=== PATIENT | male | born 1955 | race Two or more races ===

== ENCOUNTER → 2018-11-06 | Day surgery (SDC) | payer BC ==
--- NOTE | 2018-11-05 15:30 | Diagnostic Imaging Report ---
Exam: Abdominal film Clinical History: Preop for stent removal Comparison: None. DISCUSSION: Left internal ureteral stent is noted, with the proximal locking loop projecting over the expected region of the left renal pelvis. The distal locking loop projects over the region of the urinary bladder just to the right of midline. There is significant calcific encrustation along the proximal one third of the ureteral portion of the stent. A cluster of calcifications project over the lower pole of the left renal shadow to a maximum diameter of 1 cm. No suspicious calcifications project over the right renal shadow or urinary bladder. Pelvic phleboliths. Bowel gas pattern is nonobstructive. Regional skeletal structures are intact. IMPRESSION: Left internal ureteral stent with partial encrustation along the proximal ureteral portion as above. Clustered left lower pole renal calculi. Signed by: Dr. Cl Hope M.D. on 11/05/2018 3:27 PM
[~2018-11-06] MED LIST: AMLODIPINE BESY10 MG PO; BELLADONNA/OPIUM 30 MG SUPP RC ONE; FENTANYL CITRATE/PF 100MCG/2 ML INJ ONE; IOPAMIDOL 610MG/1ML 300 MG/ML VIAL IV ONE; LIDOCAINE HCL 2% LOCAL INJ 5 ML SDV VIAL INJ ONE; LOSARTAN POTAS100 MG PO; MEPERIDINE HCL INJ 25 MG/ML VIAL ONE; PIPER-TAZ 3.375 GM 50 ML ONE; PROPOFOL IV EMULSION 10 MG/ML 20 ML VIAL ONE; SEVOFLURANE INHAL SOLN 250 ML PEN BTL ONE; ULTRAM 50MG50 MG PO
--- OUTSIDE RECORDS SUMMARY | 2018-11-06 11:08 | XMS REPORT ---
Author Author [facility] Address Unknown Phone Unavailable Care Team Providers Care Coastal/Harbor Defense Officer Name Role Phone NATHALIA WALLACE Unavailable Unavailable Payers Payer Name Policy Type Policy Number Effective Date Expiration Date Problems This patient has no known problems. Allergies, Adverse Reactions, Alerts Allergy Name Allergy Type Status Severity Reaction(s) Onset Date Inactive Date Treating Clinician Comments No Known Allergies DA Active U 2018-09-25 00:00:00 Medications This patient has no known medications. Results Test Description Test Time Test Comments Text Results Atomic Results Result Comments [address] (KUB) 2018-11-05 15:24:00 [place] [address] Patient Name: CLINTON CASTANEDA MR #: [id number] : 1955 Age/Sex: 63/M Req #: [id number] Adm Physician: Ordered by: NATHALIA WALLACE MD Report #: [id number] Location: OR Room/Bed: Procedure: [id number] DX/ABDOMEN-1VIEW (KUB) Exam Date: Exam Time: REPORT STATUS: Signed Exam: Abdominal film Clinical History: Preop for stent xavier jeison Comparison: None. DISCUSSION: Left internal ureteral stent is noted, with the proximal locking loop projecting over the expected region of the left renal pelvis. The distal locking loop projects over the region of the urinary bladder just to the right of midline. There is significant calcific encrustation along the proximal one third of the ureteral portion of the stent. A cluster of calcifications project over the lower pole of the left renal shadow to a maximum diameter of 1 cm. No suspicious calcifications project over the right renal shadow or urinary bladder. Pelvic phleboliths. Bowel gas pattern is nonobstructive. Regional skeletal structures are intact. IMPRESSION: Left internal ureteral stent with partial encrustation along the proximal ureteral portion as above. Clustered left lower pole renal calculi. Signed by: Dr. Marisol Harris M.D. on 11/05/2018 3:27 PM Dictated By: MARISOL HARRIS MD [id number] Transcribed By: ELISEO on 11/05/18 1527 COPY TO: NATHALIA WALLACE MD
--- OUTSIDE RECORDS SUMMARY | 2018-11-06 11:08 | XMS REPORT | Clinical Summary ---
Author Author [facility] Address Unknown Phone Unavailable Care Team Providers Care Monumental Stonemason Name Role Phone Shilo Crockett MD PCP Allergies No Known Allergies Medications End Date Status Medication Sig Dispensed Refills Start Date Active amLODIPine (NORVASC) 10 Take 10 mg by 0 mg tablet mouth daily. 10/23/2018 Discontinued ertapenem (INVanz) 1 gram Inject 1 g 0 recon soln into the shoulder, thigh, or buttocks daily. Active Problems Problem Noted Date Kidney stones 10/07/2018 Encounters Care Team Description Date Type Specialty Senthil Engel MD 10/30/2018 Anesthesia General Surgery Event Cameron Avelar MD EXTRACORPOREAL SHOCKWAVE LITHOTRIPSY (ESWL) 10/30/2018 Surgery General Surgery Cameron Avelar MD 10/30/2018 Hospital General Surgery Encounter Cameron Avelar MD 10/23/2018 Hospital Radiology Encounter Cameron Avelar MD Preop testing (Primary Dx) 10/23/2018 Pre-Admit Pre-Admission Testing Testing Appointment [facility] 10/07/2018 Anesthesia General Surgery Event Cameron Avelar MD EXTRACORPOREAL SHOCKWAVE LITHOTRIPSY (ESWL) 10/07/2018 Surgery General Surgery Cameron Avelar MD 10/07/2018 Hospital General Surgery Encounter Cameron Avelar MD 10/06/2018 Hospital Radiology Encounter Cameron Avelar MD Preop testing (Primary Dx) 10/06/2018 Pre-Admit Pre-Admission Testing Testing Appointment after 11/05/2017 Family History Medical History Relation Name Comments Diabetes Father Heart disease Father Relation Name Status Comments Father Mother Alive Social History Date Tobacco Use Types Packs/Day Years Used Never Smoker Smokeless Tobacco: Never Used Alcohol Use Drinks/Week oz/Week Comments No Alcohol Habits Answer Date Recorded How often do you have a drink containing alcohol? Never 10/06/2018 How many drinks containing alcohol do you have on Not asked a typical day when you are drinking? How often do you have six or more drinks on one Not asked occasion? Sex Assigned at Date Recorded Not on file Industry Job Start Date Occupation Not on file Not on file Not on file Travel End Travel History Travel Start No recent travel history available. Last Filed Vital Signs Time Taken Vital Sign Reading 10/30/2018 9:26 AM MUSIC LIBRARIAN Blood Pressure 132/89 10/30/2018 9:26 AM MUSIC LIBRARIAN Pulse 71 10/30/2018 8:00 AM MUSIC LIBRARIAN Temperature 36.6 C (97.8 F) 10/30/2018 9:26 AM MUSIC LIBRARIAN Respiratory Rate 16 10/30/2018 9:26 AM MUSIC LIBRARIAN Oxygen Saturation 96% - Inhaled Oxygen - Concentration 10/30/2018 6:19 AM MUSIC LIBRARIAN Weight 84 kg (185 lb 2 oz) 10/30/2018 6:19 AM MUSIC LIBRARIAN Height 177.8 cm (5' 10") 10/30/2018 6:19 AM MUSIC LIBRARIAN Body Mass Index 26.56 Plan of Treatment Health Maintenance Due Date Last Done Comments COLON CANCER SCREENING 2004 SHINGLES VACCINES (1 of 2004 2) INFLUENZA VACCINE 06/17/2018 Procedures Comments Procedure Name Priority Date/Time Associated Diagnosis MO AN ELECTIVE Routine 10/30/2018 SUPRAGLOTTIC AIRWAY 7:38 AM MUSIC LIBRARIAN Procedure Note - Senthil Engel MD - 10/30/2018 7:38 AM MUSIC LIBRARIAN ANESTHESIA INTUBATION Date/Time: 10/30/2018 7:20 AM Performed by: Senthil Engel MD Authorized by: Senthil Engel MD Location: OR Urgency: Elective Difficult Airway: No Anesthesio logist: Senthil Engel MD Performed by: anesthesio logist Preoxygena dariel with 100% O2: Yes C-spine Precaution s Maintained Throughout : Yes Final Airway Type: Supraglott ic airway Final LMA: Classic LMA Size: 5 Number of Attempts at Approach: 1 Medication s Administer ed Propofol (DIPRIVAN) BOLUS, 150 mg EXTRACORPOREAL SHOCKWAVE 10/30/2018 LEFT KIDNEY STONE LITHOTRIPSY (ESWL) 7:15 AM MUSIC LIBRARIAN N20.0 XR KUB KIDNEY URETER Routine 10/23/2018 Preop testing BLADDER 3:05 PM MUSIC LIBRARIAN ECG 12-LEAD Routine 10/23/2018 Preop testing 2:38 PM MUSIC LIBRARIAN MO AN ELECTIVE Routine 10/07/2018 SUPRAGLOTTIC AIRWAY 7:39 AM MUSIC LIBRARIAN Procedure Note - [facility] - 10/07/2018 7:39 AM MUSIC LIBRARIAN ANESTHESIA INTUBATION Performed by: [facility] Authorized by: Gab Johnson MD Location: OR Urgency: Elective Difficult Airway: No Anesthesio logist: Gab Johnson MD Resident/C RNA/AA: [facility] Performed by: resident/C RNA/AA Preoxygena dariel with 100% O2: Yes C-spine Precaution s Maintained Throughout : Yes Mask Ventilatio n: Not attempted Final Airway Type: Supraglott ic airway Final LMA: Unique LMA Size: 5 Number of Attempts at Approach: 1 CYSTOSCOPY, WITH 10/07/2018 N20.0 KIDNEY STONE TRANSURETHRAL INCISION OF 7:00 AM MUSIC LIBRARIAN PROSTATE Special Needs NEXTMED- OFFICE WILL SCHEDULE CYSTOSCOPY, WITH 10/07/2018 N20.0 KIDNEY STONE TRANSURETHRAL INCISION OF 7:00 AM MUSIC LIBRARIAN BLADDER NECK Special Needs NEXTMED- OFFICE WILL SCHEDULE EXTRACORPOREAL SHOCKWAVE 10/07/2018 N20.0 KIDNEY STONE LITHOTRIPSY (ESWL) 7:00 AM MUSIC LIBRARIAN Special Needs NEXTMED- OFFICE WILL SCHEDULE XR KUB KIDNEY URETER Routine 10/06/2018 Preop testing BLADDER 4:12 PM MUSIC LIBRARIAN ECG 12-LEAD Routine 10/06/2018 Preop testing 3:38 PM MUSIC LIBRARIAN URIC ACID LEVEL Routine 10/06/2018 3:31 PM MUSIC LIBRARIAN ESTIMATED GFR Routine 10/06/2018 3:31 PM MUSIC LIBRARIAN BASIC METABOLIC PANEL Routine 10/06/2018 Preop testing 3:31 PM MUSIC LIBRARIAN PARATHYROID HORMONE Routine 10/06/2018 Preop testing 3:31 PM MUSIC LIBRARIAN HC COMPLETE BLD COUNT Routine 10/06/2018 Preop testing W/AUTO DIFF 3:31 PM MUSIC LIBRARIAN after 11/05/2017 Results * XR Kub Kidney Ureter Bladder (10/23/2018 3:05 PM MUSIC LIBRARIAN) Only the most recent of 2 results within the time period is included. Narrative Performed At EXAMINATION:XR KUB KIDNEY URETER BLADDER [facility] CLINICAL HISTORY:Z01.818 Encounter for other preprocedural examination, preop COMPARISON:October 06, 2018 abdomen FINDINGS: Previously noted 16 mm pelvic calcification on the left no longer seen. Numerous punctate lower pole calyceal calculi now present. Double-J ureteral stent in place on the left as before No right-sided urinary tract calculi. A nonobstructive bowel gas pattern IMPRESSION: Previously noted pelvic calculus on the left no longer seen. Small fragmented calculi over the lower pole calyx level on the Double-J ureteral stent remains in position. [id number] Procedure Note Interface, Radiology Results Incoming - 10/23/2018 4:17 PM MUSIC LIBRARIAN EXAMINATION: XR KUB KIDNEY URETER BLADDER CLINICAL HISTORY: Z01.818 Encounter for other preprocedural examination, preop COMPARISON: October 06, 2018 abdomen FINDINGS: Previously noted 16 mm pelvic calcification on the left no longer seen. Numerous punctate lower pole calyceal calculi now present. Double-J ureteral stent in place on the left as before No right-sided urinary tract calculi. A nonobstructive bowel gas pattern IMPRESSION: Previously noted pelvic calculus on the left no longer seen. Small fragmented calculi over the lower pole calyx level on the Double-J ureteral stent remains in position. [id number] Performing Organization Address City/State/Zipcode Phone Number [facility] [address] [place] [address] * ECG 12 lead (10/23/2018 2:38 PM MUSIC LIBRARIAN) Only the most recent of 2 results within the time period is included. Ventricular rate 76 [facility] Atrial rate 76 [facility] MO interval 134 [facility] QRSD interval 84 [facility] QT interval 366 [facility] QTC interval 411 [facility] P axis 1 48 [facility] QRS axis 1 38 [facility] T wave axis 51 [facility] EKG impression Normal sinus rhythm-Normal [facility] M[facility] ECG-In automated comparison with ECG of 06-OCT-2018 15:38,-No significant change was found- Narrative Performed At Performing Organization Address City/State/Zipcode Phone Number [facility] MUSE [address] [place] [address] * Estimated GFR (10/06/2018 3:31 PM MUSIC LIBRARIAN) Estimated GFR 71 mL/min/1.73 m2 [facility] Comment: [facility] CatergoryUnitsInte rpretation G1 >=90 Normal or high G2 60-89Mildly decreased S1t27-86 Mildly to moderately decreased Y3k32-43 Moderately to severely decreased G4 15-29Severely decreased G5 <15Kidney failure The eGFR was calculated using the Chronic Kidney Disease Epidemiology Collaboration (CKD-EPI) equation. Interpretation is based on recommendations of the National Kidney Foundation-Kidney Disease Outcomes Quality Initiative (NKF-KDOQI) published in 2014. Specimen Plasma specimen Performing Organization Address City/[facility]/Zipcode Phone Number [facility] [place] [id number] [place] [address] [place] [id number] PATHOLOGY AND GENOMIC MEDICINE [address] * CBC with platelet and differential (10/06/2018 3:31 PM MUSIC LIBRARIAN) WBC 7.91 4.50 - 11.00 k/uL [facility] RBC 5.60 4.40 - 6.00 m/uL [facility] HGB 13.4 (L) 14.0 - 18.0 g/dL [facility] HCT 43.0 41.0 - 51.0 % [facility] MCV 76.8 (L) 82.0 - 100.0 fL [facility] MCH 23.9 (L) 27.0 - 34.0 pg [facility] MCHC 31.2 31.0 - 37.0 g/dL [facility] RDW - SD 44.7 37.0 - 55.0 fL [facility] MPV 9.7 8.8 - 13.2 fL [facility] Platelet count 541 (H) 150 - 400 k/uL [facility] Nucleated RBC 0.00 /100 WBC [facility] Neutrophils 57.6 39.0 - 69.0 % [facility] Lymphocytes 35.7 25.0 - 45.0 % [facility] Monocytes 3.8 0.0 - 10.0 % [facility] Eosinophils 1.5 0.0 - 5.0 % [facility] Basophils 0.8 0.0 - 1.0 % [facility] Specimen Blood Performing Organization Address City/[facility] Phone Number [address] [place] [address] PATHOLOGY AND GENOMIC MEDICINE [address] * Uric acid level (10/06/2018 3:31 PM MUSIC LIBRARIAN) Uric acid 7.1 (H) 3.4 - 7.0 mg/dL [facility] Specimen Plasma specimen Performing Organization Address [facility] Phone Number [address] [place] [address] PATHOLOGY AND GENOMIC MEDICINE [address] * Parathyroid hormone (10/06/2018 3:31 PM MUSIC LIBRARIAN) PTH 77 (H) 15 - 65 pg/mL [facility] Specimen Blood Performing Organization Address [facility] Phone Number [address] [place] [address] PATHOLOGY AND GENOMIC MEDICINE [address] * Basic metabolic panel (10/06/2018 3:31 PM MUSIC LIBRARIAN) Sodium 140 135 - 148 mEq/L [facility] Potassium 4.8 3.5 - 5.0 mEq/L [facility] Chloride 102 98 - 112 mEq/L [facility] CO2 24 24 - 31 mEq/L [facility] Anion gap 14@ANIO 7 - 15 mEq/L [facility] BUN 17 8 - 23 mg/dL [facility] Creatinine 1.10 0.70 - 1.20 mg/dL [facility] Glucose 100 (H) 65 - 99 mg/dL [facility] Calcium 9.8 8.8 - 10.2 mg/dL [facility] Specimen Plasma specimen Performing Organization Address City/State/Zipcode [place] [address] [place] [address] PATHOLOGY AND GENOMIC MEDICINE [facility] [address] [place] [address] [facility] after 11/05/2017 Insurance Payer Benefit Subscriber ID Type Phone Address Plan / Group BCBS EXCHANGE BLUE xxxxxxxxxxxx Exchange ADVANTAGE HMO EXCH Advance Directives Patient has advance care planning documents on file. For more information, zuleima rogers contact: [facility] [address] [place] [address]
[2018-11-06 17:15] VITALS: BP 130/85
--- NOTE | 2018-12-29 04:27 | Operative Report ---
DATE OF PROCEDURE: November 06, 2018 PREOPERATIVE DIAGNOSES 1. Left ureterolithiasis. 2. Left nephrolithiasis. 3. Left indwelling ureteral stent. POSTOPERATIVE DIAGNOSES 1. Left ureterolithiasis. 2. Left nephrolithiasis. 3. Left indwelling ureteral stent. OPERATIONS PERFORMED: Note these are all staged procedures as part of multistage, multistep process of managing patient's urolithiasis. 1. Cystourethroscopy with complicated removal of left indwelling ureteral stent (separate procedure performed with separate scope for the diagnosis of stent). 2. Left semirigid ureteroscopy with stone manipulation and extraction (separate procedure performed for the multiple ureteral stones). 3. Left ureteropyeloscopy with holmium laser lithotripsy and extraction of stones (separate procedure performed for the extensive amount of left residual nephrolithiasis done with separate scope). 4. Left flexible ureteropyeloscopy with holmium laser lithotripsy, stones extraction, and placement of stents (separate procedure performed for the diagnosis of the left nephrolithiasis that is extensive). 5. Urological services for supervision and interpretation of ureteroscopy. 6. Interpretation of retrograde ureteropyelography. 7. Supervision of fluoroscopy. No radiologist present. ANESTHESIA: General. COMPLICATIONS: None. CLINICAL SUMMARY: Rebecca Castaneda is a 63-year-old man who presented with large nephrolithiasis. He underwent ESWL procedures. He has residual stone burden and is brought in hopes of rendering him stone-free. He is aware of the risks of bleeding, infection, injury to adjacent structures, need for additional procedures, and elected to proceed. OPERATIVE PROCEDURE IN DETAIL: Informed consent was verified. Rebecca Castaneda was properly identified, taken to the operating room, and placed on the cystoscopy table in supine position. Anesthesia was uneventfully begun. The patient was then carefully and gently re-positioned in dorsal lithotomy position with all pressure points well padded. His genitalia were prepared and draped in the usual sterile fashion. The 22.5-Irish cystoscope sheath with the visual obturator in place was atraumatically inserted in the patient's urethra. It was guided down an unremarkable urethra to the prostate bed which exhibited being status post transurethral resection. The bladder neck appeared open status post resection of the bladder neck contracture. We entered the patient's bladder where we identified a stent emerging from left ureteral orifice. There were no suspicious mucosal lesions. There were no stones. A guidewire was then placed alongside the stent and guided at the level of the patient's kidney. The stent was then grasped, completely removed, and discarded. Semirigid ureteroscopy was then performed. We atraumatically inserted the semi-rigid urethroscope into the left ureter. We identified multiple stones. Each one of these stone fragments was grasped and manipulated with a basket and atraumatically extracted. The ureter was rendered stone-free with the rigid ureteroscope. After the extensive procedure of rendering the patient's ureter free from countless stones, we then utilized secondary guidewire and flexible ureteroscopy sheath. We guided this up into the ureter under direct vision. We then brought the ureteroscope up into the kidney. We identified a relatively open ureteropelvic junction. We entered the patient's kidney. We identified multiple stones. Many stones were grasped, but there was one large stone that could not be manipulated down the ureter safely. We proceeded with whittling the stone down with the holmium laser, and following lithotripsy, we were easily able to extract this stone away. No additional significantly sized stone fragments remained in the kidney nor in the ureter upon exiting. This was accomplished under fluoroscopic guidance. A left-sided indwelling ureteral stent was then placed. It was coiled in the patient's kidney as well as patient's bladder. The retaining suture was left long. Interpretation of retrograde ureteropyelography: Contrast was instilled in a retrograde fashion bilaterally. There was some fullness of the left side collecting system. The stent was in good position, coiled in patient's kidney as well as patient's bladder at the end of the case. Patient's bladder was drained. The cystoscope was withdrawn. The patient was uneventfully reversed from anesthesia and taken to the recovery room in stable condition. Explicit postop instructions were given. We will follow the patient up in the office at which point in time we will perform uroflowmetry and bladder sonography. Job#: [id number] CF cc:ALFONSO CASTANEDA MD
== END | disposition home or self-care (01) ==
LOC: OR 11:05
PROVIDERS: ATTEND Urology
DX: N20.0 Calculus of kidney (principal); N20.1 Calculus of ureter; Z46.6 Encounter for fitting and adjustment of urinary device; I10 Essential (primary) hypertension; Z01.810 Encounter for preprocedural cardiovascular examination; Z01.818 Encounter for other preprocedural examination
CPT/HCPCS: 52356; 74018; 74420; 88300; 93005; C1766; C2617; J2001; J2175; J2543; J2704; Q9967